=== PATIENT | male | born 1985 | race Caucasian/White ===

== ENCOUNTER 2017-02-04 20:52 | Emergency (ER) | payer OTHER ==
[2017-02-04 21:05] VITALS: BP 141/99; PULSE 69; TEMP 97.6; BMI 40.3
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
[2017-02-04] MEDS ORDERED: KETOROLAC TROMETHAMINE 60 MG/2 ML VIAL IM ONE (22:23)
[2017-02-04] MEDS ORDERED: KETOROLAC TROMETHAMINE 60 MG/2 ML VIAL ONE (22:25)
== END 2017-02-04 22:46 | disposition home or self-care (01) ==
LOC: JERFT 20:52
PROC: 3E0233Z Introduction of Anti-inflammatory into Muscle, Percutaneous Approach (ICD-10-PCS; principal; 2017-02-04)
DX: M54.12 Radiculopathy, cervical region (principal); S16.1XXD Strain of muscle, fascia and tendon at neck level, subsequent encounter; V59.4 Driver of pick-up truck or van injured in collision with other and unspecified motor vehicles in traffic accident; Y92.414 Local residential or business street as the place of occurrence of the external cause; Y93.89 Activity, other specified; Y99.8 Other external cause status
CPT/HCPCS: 99281-25

== ENCOUNTER 2017-05-25 00:48 | Emergency (ER) | payer OTHER | END 2017-05-25 02:19 | disposition left against medical advice (07) | LOC: JER 00:48 | DX: Z53.21 Procedure and treatment not carried out due to patient leaving prior to being seen by health care provider (principal) | CPT/HCPCS: 99281-25 ==

== ENCOUNTER 2018-12-16 17:44 | Emergency (ER) | payer OTHER ==
--- NOTE | 2018-12-16 18:01 | PDOC ---
Rapid Medical Evaluation Time Seen by Provider: 12/16/18 17:58 Medical Evaluation: Allergies Allergy/AdvReac Type Severity Reaction Status Date / Time No Known Allergies Allergy Verified 02/04/17 21:03 12/16/18 17:58 I have performed a brief in-person evaluation of this patient. The patient presents with chief complaint of vomiting x 2 day, with no diarrhea or abdominal pain. States symptoms started after eating ayon egg and cheese sandwich. States feeling dizzy Pertinent physical exam findings NAD even and unlabored breathing, clear lungs + bowel sounds, non tender abdomen I have ordered the following ekg, The patient will proceed to the Ed for further evaluation Discharge Disposition - Diagnosis Vomiting and diarrhea - Referrals - Patient Instructions - Post Discharge Activity
[2018-12-16] MEDS ORDERED: ONDANSETRON *ODT* 4 MG TABLET SL ONE (18:02)
[2018-12-16 18:05] VITALS: TEMP 97.1; BMI 37.9
[2018-12-16] MEDS ORDERED: ONDANSETRON *ODT* 4 MG TABLET ONE (18:40)
--- NOTE | 2018-12-16 19:18 | PDOC ---
History of Present Illness - General Chief Complaint: Vomiting/Diarrhea Stated Complaint: VOMITING Time Seen by Provider: 12/16/18 17:58 History Source: Patient - History of Present Illness Initial Comments: 12/16/18 19:36 33-year-old male complaining of nausea, vomiting, diarrhea 2 hours after eating ayon and cheese sandwich today. Patient denies any abdominal pain. Denies urinary symptoms, chest pain, dizziness. Patient reports feeling weak denies fevers/chills. 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 Loss, Unexplained wgt Loss, Other HEENTM: No: Symptoms Reported, See HPI, Eye Pain, Blurred Vision, Tearing, Recent change in vision, Double Vision, Cataracts, Ear Pain, Ocular Prothesis, Ear Discharge, Nose Pain, Nose Congestion, Tinnitus, Nose Bleeding, Hearing Loss , Throat Pain, Throat Swelling, Mouth Pain, Dental Problems, Difficulty Swallowing, Mouth Swelling, Other ABD/GI: Yes: Diarrhea, Nausea, Vomiting. No: Symptoms Reported, See HPI, Abdominal Distended, Abd. Pain w/ defecation, Blood Streaked Bowels, Constipated , Difficulty Swallowing, Poor Appetite, Poor Fluid Intake, Rectal Bleeding, Indigestion, Abdominal cramping, Tarry Stools, Other : No: Symptoms Reported, See HPI, Burning, Dysuria, Discharge, Frequency, Flank Pain, Hematuria, Incontinence, Pain, Urgency, Testicular Mass, Testicular Swelling, Lesions, Testicular Pain, Other Musculoskeletal: No: Symptoms Reported, See HPI, Back Pain, Gout, Joint Pain, Joint Swelling, Muscle Pain, Muscle Weakness, Neck Pain, Joint Stiffness, Other *Physical Exam - Vital Signs Last Vital Signs Temp Pulse Resp BP Pulse Ox 97.1 F L 62 16 142/102 H 100 12/16/18 17:58 12/16/18 17:58 12/16/18 17:58 12/16/18 17:58 12/16/18 17:58 - Physical Exam General Appearance: Yes: Appropriately Dressed Respiratory/Chest: positive: Lungs Clear, Normal Breath Sounds Cardiovascular: positive: Regular Rhythm, Regular Rate Gastrointestinal/Abdominal: positive: Soft, Increased Bowel Sounds. negative: Tender Musculoskeletal: positive: Normal Inspection Extremity: positive: Normal Capillary Refill, Normal Inspection, Normal Range of Motion Integumentary: positive: Normal Color, Dry, Warm Neurologic: positive: Fully Oriented, Alert, Normal Mood/Affect Moderate Sedation - Procedure Monitoring Vital Signs: Procedure Monitoring Vital Signs Temperature 97.1 F L 12/16/18 17:58 Pulse Rate 62 12/16/18 17:58 Respiratory Rate 16 12/16/18 17:58 Blood Pressure 142/102 H 12/16/18 17:58 O2 Sat by Pulse Oximetry (%) 100 12/16/18 17:58 ED Treatment Course - LABORATORY CBC & Chemistry Diagram: 12/16/18 20:45 12/16/18 20:45 - Medications Given in the ED: ED Medications Discontinued Medications Generic Name Dose Route Start Last Admin Trade Name Freq PRN Reason Stop Dose Admin Ondansetron HCl 4 mg 12/16/18 18:02 12/16/18 18:44 Zofran Odt - SL 12/16/18 18:03 4 mg ONCE ONE Administration Progress Note - Progress Note Progress Note: A: gastroenteritis P: Gi cocktail Po challenge. did not tolerate Po challenge. IVF in zofran labs Medical Decision Making - Medical Decision Making 12/16/18 22:08 tolerated PO water. reports feeling better. will d/ chome. 12/16/18 22:25 b/p 145/97. patient to follow up pcp for b/p management. *DC/Admit/Observation/Transfer Diagnosis at time of Disposition: Vomiting and diarrhea, Gastroenteritis, acute - Discharge Dispostion Disposition: HOME - Referrals - Patient Instructions Printed Discharge Instructions: Viral Gastroenteritis Additional Instructions: drink plenty of fluids start a BRAT ( bananas, rice apples toast) follow up with your doctor return to the ER if symptoms worsen - Post Discharge Activity Forms/Work/School Notes: Back to Work
[2018-12-16] MEDS ORDERED: RANITIDINE HCL 150 MG TABLET (FP) PO ONE (19:36)
[2018-12-16] MEDS ORDERED: MAG HYDROX/AL HYDROX/SIMETH 30 ML UNIT-DOSE CUP PO ONE (19:36)
[2018-12-16] MEDS ORDERED: MAG HYDROX/AL HYDROX/SIMETH 30 ML UNIT-DOSE CUP ONE (19:42)
[2018-12-16] MEDS ORDERED: RANITIDINE HCL 150 MG TABLET (FP) ONE (19:42)
[2018-12-16 19:57] LABS: URINE APPEARANCE CLEAR; URINE BILIRUBIN NEGATIVE (<2.0 mg/dL); URINE COLOR STRAW; URINE GLUCOSE (UA) NEGATIVE (NEGATIVE); URINE KETONE NEGATIVE (NEGATIVE); URINE LEUK ESTERASE NEGATIVE (NEGATIVE); URINE NITRITE NEGATIVE (NEGATIVE); URINE PROTEIN NEGATIVE (NEGATIVE); URINE UROBILINOGEN NEGATIVE mg/dL (0.2-1.0)
[2018-12-16] MEDS ORDERED: SODIUM CHLORIDE 0.9% 500 ML INFUS.BAG IV ONE (20:12)
[2018-12-16] MEDS ORDERED: ONDANSETRON 4 MG/2 ML VIAL IVPB ONE (20:12)
[2018-12-16] MEDS ORDERED: ONDANSETRON 4 MG/2 ML VIAL ONE (20:46)
[2018-12-16 20:53] LABS: BASO % 0.5 % (0-2.0); EOS % 0.2 % (0-4.5); HEMATOCRIT 46.9 % (35.4-49); HEMOGLOBIN 15.8 GM/dL (11.7-16.9); LYMPH % 12.5 % (8-40); MCH 28.7 pg (25.7-33.7); MCHC 33.8 g/dl (32.0-35.9); MONO % 3.9 % (3.8-10.2); NEUT % 82.9 % (42.8-82.8); PLATELET COUNT 275 K/MM3 (134-434); RBC 5.52 M/mm3 (4.00-5.60); RDW 13.3 % (11.9-15.9); WHITE BLOOD COUNT 11.9 K/mm3 (4.0-10.0)
[2018-12-16 21:16] LABS: ALBUMIN 4.6 g/dl (3.4-5.0); ALK PHOS 91 U/L (45-117); ANION GAP 7 MMOL/L (8-16); BILIRUBIN,TOTAL 0.3 mg/dL (0.2-1); BLOOD UREA NITROGEN 8 mg/dL (7-18); CALCIUM 9.7 mg/dL (8.5-10.1); CHLORIDE 104 mmol/L (98-107); CO2 29 mmol/L (21-32); CREATININE 0.9 mg/dL (0.55-1.3); GLUCOSE,RANDOM 97 mg/dL (74-106); LIPASE 157 U/L (73-393); POTASSIUM 4.4 mmol/L (3.5-5.1); SGOT/AST 13 U/L (15-37); SGPT/ALT 18 U/L (13-61); SODIUM 140 mmol/L (136-145); TOT PROT 8.5 g/dl (6.4-8.2)
[2018-12-16 22:21] VITALS: BP 142/97; PULSE 57
--- NOTE | 2018-12-17 10:43 | EKG ---
Test Reason : Blood Pressure : / mmHG Vent. Rate : 052 BPM Atrial Rate : 052 BPM P-R Int : 146 ms QRS Dur : 098 ms QT Int : 416 ms P-R-T Axes : 057 046 044 degrees QTc Int : 386 ms SINUS BRADYCARDIA OTHERWISE NORMAL ECG WHEN COMPARED WITH ECG OF 01-APR-2016 09:34, NO SIGNIFICANT CHANGE WAS FOUND Confirmed by Seven Segura MD ([id number]) on 12/17/2018 10:42:44 AM Referred By: Confirmed By:Seven Segura MD
== END 2018-12-16 22:30 | disposition home or self-care (01) ==
LOC: JER 17:44
PROC: 3E033GC Introduction of Other Therapeutic Substance into Peripheral Vein, Percutaneous Approach (ICD-10-PCS; principal; 2018-12-16)
DX: K52.9 Noninfective gastroenteritis and colitis, unspecified (principal)
CPT/HCPCS: 36415; 80053; 81003; 83690; 85025; 93005; 93010; 96374; 99282-25; Q0162

== ENCOUNTER 2019-01-17 22:25 | Emergency (ER) | payer OTHER ==
[2019-01-17 22:38] VITALS: BP 159/105; PULSE 67; TEMP 97.4; BMI 39.5
--- NOTE | 2019-01-17 23:36 | PDOC ---
History of Present Illness - General Chief Complaint: Nausea/Vomiting Stated Complaint: VOMITING Time Seen by Provider: 01/17/19 23:21 History Source: Patient Exam Limitations: No Limitations - History of Present Illness Initial Comments: 01/17/19 23:46 HISTORY OF PRESENT ILLNESS: 33-year-old male with past medical history of left nephrectomy as a child presents emergency department for evaluation of bitemporal headache, lightheadedness and vomiting today after eating 2 cheeseburgers and fries from [employer]. Patient reported this, it was undigested food was nonbilious nonbloody. Patient denies cough, fevers, sore throats, abdominal pain, diarrhea, hematuria, dysuria. No recent travel or sick contacts. PAST MEDICAL HISTORY: Denies past medical history SURGICAL HISTORY: see HPI ALLERGIES: No known drug allergies REVIEW OF SYSTEMS General/Constitutional: Denies fever or chills. Denies weakness, weight change. HEENT: Denies change in vision. Denies ear pain or discharge. Denies sore throat. Cardiovascular: Denies chest pain or shortness of breath. Respiratory: Denies cough, wheezing, or hemoptysis. Gastrointestinal: see HPI Genitourinary: Denies dysuria, frequency, or change in urination. Musculoskeletal: Denies joint or muscle swelling or pain. Denies neck or back pain. Skin and breasts: Denies rash or easy bruising. Neurologic: Denies headache, vertigo, loss of consciousness, or loss of sensation. Psychiatric: Denies depression or anxiety. Endocrine: Denies increased thirst. Denies abnormal weight change. Hematologic/Lymphatic: Denies anemia, easy bleeding, or history of blood clots. Allergic/Immunologic: Denies hives or skin allergy. Denies latex allergy. PHYSICAL EXAM General Appearance: Well-appearing, appropriately dressed. No apparent distress , no intoxication. HEENT: EOMI, PERRLA, normal ENT inspection, normal voice, TMs normal, pharynx normal. No conjunctival pallor. No photophobia, scleral icterus. Neck: Supple. Trachea midline. No tenderness, rigidity, carotid bruit, stridor , lymphadenopathy, or thyromegaly. Respiratory/Chest: Lungs CTAB. No shortness of breath, chest tenderness, respiratory distress, accessory muscle use. No crackles, rales, rhonchi, stridor , wheezing, dullness Cardiovascular: RRR. S1, S2. No JVD, murmur, bradycardia, tachycardia. Vascular Pulses: Dorsalis-Pedis (R): 2+, Dorsalis-Pedis (L): 2+ Gastrointestinal/Abdominal: Normal bowel sounds. Obese abdomen soft, non- distended. No tenderness or rebound tenderness. No organomegaly, pulsatile mass , guarding, hernia, hepatomegaly, splenomegaly. Lymphatic: No adenopathy, tenderness. Musculoskeletal/Extremities: Normal inspection. FROM of all extremities, normal capillary refill. Pelvis Stable. No CVA tenderness. No tenderness to extremities, pedal edema, swelling, erythema or deformity. Integumentary: Appropriate color, dry, warm. No cyanosis, erythema, jaundice or rash Neurologic: senior research associate II-XII intact. Fully oriented, alert. Appropriate mood/affect. Motor strength 5/5. No appreciable EOM palsy, facial droop or sensory deficit. Negative Romberg. Negative [place]-Hallpike. Gait steady. 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, right side) - Immunization History Immunization Up to Date: Yes - Suicide/Smoking/Psychosocial Hx Smoking History: Never smoked Have you smoked in the past 12 months: No Hx Alcohol Use: No Drug/Substance Use Hx: No Substance Use Type: None *Physical Exam - Vital Signs Last Vital Signs Temp Pulse Resp BP Pulse Ox 97.4 F L 67 20 159/105 H 100 01/17/19 22:33 01/17/19 22:33 01/17/19 22:33 01/17/19 22:33 01/17/19 22:33 ED Treatment Course - LABORATORY CBC & Chemistry Diagram: 01/17/19 23:48 01/17/19 23:48 Medical Decision Making - Medical Decision Making 01/17/19 23:50 A/P: 33-year-old male with headache, lightheadedness and vomiting Differential diagnosis includes but is not limited to vertigo, cluster headache , gastroenteritis, influenza, pancreatitis, cholecystitis, GERD, pneumonia, hypertensive urgency Pneumonia less likely given patient is not coughing has not had any fevers. Labs including lipase Urinalysis, urine culture Normal saline 1 L bolus Toradol 30 mg IV Benadryl 25 mg IV Reglan 10 mg IV I'll defer imaging at this time as her is benign abdominal exam Reassess 01/17/19 23:52 01/18/19 01:22 Laboratory testing shows WBC at 10.8. Chemistry is unremarkable Urinalysis with 1+ leuk esterase 3 wbc's on high-power field Influenza testing is negative Patient is currently free of pain and has a benign abdominal exam. I'll discharge the patient home with referral for primary doctor. *DC/Admit/Observation/Transfer Diagnosis at time of Disposition: Gastroenteritis, acute - Discharge Dispostion Disposition: HOME Condition at time of disposition: Stable Decision to Admit order: No - Prescriptions Prescriptions: Ondansetron [Zofran -] 4 mg PO TID #21 tablet - Referrals Referrals: David Maya MD [Staff Physician] - - Patient Instructions Additional Instructions: Rest, drink lots of fluids: Teas, water, soups Toyin kylee, carbonated beverages for the bubbles May try peppermint teas Avoid heavy , spicy or fatty foods until symptoms have resolved Avoid contact with others until fevers and symptoms resolved Lots of handwashing and good hygiene Continue [id number] medications for symptomatic relief Tylenol or Motrin for fever and pain May use Zofran-one tablet dissolved on tongue as needed for nauseousness. May repeat times one every 8 hours Followup with private physician in one to 2 days as needed Return to emergency department for worsened symptoms, fevers, dehydration - Post Discharge Activity
[2019-01-17] MEDS ORDERED: SODIUM CHLORIDE 1,000 ML IV STA (23:37)
[2019-01-17] MEDS ORDERED: KETOROLAC TROMETHAMINE 30 MG/1 ML VIAL IVPUSH ONE (23:37)
[2019-01-17] MEDS ORDERED: METOCLOPRAMIDE HCL INJECTION 10 MG/2 ML VIAL IVPUSH ONE (23:37)
[2019-01-17] MEDS ORDERED: METOCLOPRAMIDE HCL INJECTION 10 MG/2 ML VIAL ONE (23:56)
[2019-01-17] MEDS ORDERED: KETOROLAC TROMETHAMINE 30 MG/1 ML VIAL ONE (23:56)
[2019-01-18 00:01] LABS: BASO % 0.7 % (0-2.0); EOS % 0.8 % (0-4.5); HEMOGLOBIN 13.8 GM/dL (11.7-16.9); LYMPH % 19.2 % (8-40); MEAN CELL VOLUME 84.9 fl (80-96); MEAN PLT VOLUME 9.7 fl (7.5-11.1); MONO % 8.2 % (3.8-10.2); NEUT % 71.1 % (42.8-82.8); PLATELET COUNT 229 K/MM3 (134-434); RBC 4.94 M/mm3 (4.00-5.60); RDW 13.6 % (11.9-15.9); WHITE BLOOD COUNT 10.8 K/mm3 (4.0-10.0)
[2019-01-18] MEDS ORDERED: METOCLOPRAMIDE HCL INJECTION 10 MG/2 ML VIAL ONE (00:03)
[2019-01-18 00:09] LABS: EPI CELLS 1.2 /HPF (0-5/HPF); URINE APPEARANCE CLEAR; URINE BACTERIA 2.5 /hpf (NEGATIVE); URINE BILIRUBIN NEGATIVE (NEGATIVE); URINE CASTS 1 /lpf (0-8); URINE COLOR YELLOW; URINE GLUCOSE (UA) NEGATIVE (NEGATIVE); URINE KETONE NEGATIVE (NEGATIVE); URINE LEUK ESTERASE 1+ (NEGATIVE); URINE NITRITE NEGATIVE (NEGATIVE); URINE PROTEIN NEGATIVE (NEGATIVE); URINE RBC 0 /hpf (0-4); URINE WBC 3 /hpf (0-5)
[2019-01-18 00:31] LABS: ALBUMIN 3.8 g/dl (3.4-5.0); ALK PHOS 78 U/L (45-117); ANION GAP 4 MMOL/L (8-16); BILIRUBIN,TOTAL 0.3 mg/dL (0.2-1); BLOOD UREA NITROGEN 10 mg/dL (7-18); CALCIUM 9.5 mg/dL (8.5-10.1); CHLORIDE 107 mmol/L (98-107); CO2 30 mmol/L (21-32); CREATININE 0.7 mg/dL (0.55-1.3); GLUCOSE,RANDOM 92 mg/dL (74-106); LIPASE 137 U/L (73-393); POTASSIUM 3.9 mmol/L (3.5-5.1); SGOT/AST 11 U/L (15-37); SGPT/ALT 16 U/L (13-61); SODIUM 141 mmol/L (136-145); TOT PROT 7.4 g/dl (6.4-8.2)
== END 2019-01-18 01:35 | disposition home or self-care (01) ==
LOC: JER 22:25
PROC: 3E033GC Introduction of Other Therapeutic Substance into Peripheral Vein, Percutaneous Approach (ICD-10-PCS; principal; 2019-01-17)
PROC: 3E033GC Introduction of Other Therapeutic Substance into Peripheral Vein, Percutaneous Approach (ICD-10-PCS; 2019-01-17)
PROC: 3E0333Z Introduction of Anti-inflammatory into Peripheral Vein, Percutaneous Approach (ICD-10-PCS; 2019-01-17)
DX: K52.9 Noninfective gastroenteritis and colitis, unspecified (principal); Z90.5 Acquired absence of kidney
CPT/HCPCS: 36415; 80053; 81003; 83690; 85025; 87086; 87804; 96374; 96375; 99282-25; J7030

== ENCOUNTER 2019-01-22 00:40 | Emergency (ER) | payer OTHER ==
[2019-01-22 03:12] VITALS: BP 143/95; PULSE 68; TEMP 98.1; BMI 40.7
[2019-01-22] MEDS ORDERED: ACETAMINOPHEN 325 MG TABLET (FP) PO ONE (03:27)
--- NOTE | 2019-01-22 03:31 | PDOC ---
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, right side) - Immunization History Immunization Up to Date: Yes - Suicide/Smoking/Psychosocial Hx Smoking History: Current some day smoker Have you smoked in the past 12 months: Yes Number of Cigarettes Smoked Daily: 10 Information on smoking cessation initiated: No Hx Alcohol Use: Yes Drug/Substance Use Hx: No Substance Use Type: None Review of Systems - Review of Systems Able to Perform ROS?: No *Physical Exam - Vital Signs Last Vital Signs Temp Pulse Resp BP Pulse Ox 98.1 F 68 19 143/95 99 01/22/19 00:40 01/22/19 00:40 01/22/19 00:40 01/22/19 00:40 01/22/19 00:40 Medical Decision Making - Medical Decision Making Pt eloped before being seen. 01/22/19 03:43 *DC/Admit/Observation/Transfer Diagnosis at time of Disposition: Eloped from emergency department - Discharge Dispostion Disposition: ELOPED - Referrals Referrals: Linda Kim MD [Primary Care Provider] - - Patient Instructions - Post Discharge Activity
== END 2019-01-22 04:09 | disposition left against medical advice (07) ==
LOC: JER 00:40
DX: Z53.21 Procedure and treatment not carried out due to patient leaving prior to being seen by health care provider (principal)
CPT/HCPCS: 99281-25

== ENCOUNTER 2019-07-16 17:58 | Emergency (ER) | payer SELFPAY ==
--- NOTE | 2019-07-16 18:08 | PDOC ---
Rapid Medical Evaluation Time Seen by Provider: 07/16/19 18:06 Medical Evaluation: Allergies Allergy/AdvReac Type Severity Reaction Status Date / Time No Known Allergies Allergy Verified 01/22/19 02:40 07/16/19 18:06 I have performed a brief in-person evaluation of this patient. The patient presents with a chief complaint of: abd pain, vomiting Pertinent physical exam findings:stable and in NAD, non-focal I have ordered the following:labs The patient will proceed to the ED for further evaluation.
[2019-07-16 18:09] VITALS: BP 148/103; PULSE 51; TEMP 97.3; BMI 36.6
[2019-07-16] MEDS ORDERED: ONDANSETRON 4 MG/2 ML VIAL IVPUSH ONE (18:09)
[2019-07-16] MEDS ORDERED: SODIUM CHLORIDE 1,000 ML IV STA (18:09)
[2019-07-16 18:43] LABS: BASO % 0.4 % (0-2.0); EOS % 0.5 % (0-4.5); HEMATOCRIT 43.6 % (35.4-49); HEMOGLOBIN 14.4 GM/dL (11.7-16.9); LYMPH % 17.2 % (8-40); MCH 27.8 pg (25.7-33.7); MEAN CELL VOLUME 84.2 fl (80-96); MEAN PLT VOLUME 9.9 fl (7.5-11.1); MONO % 9.1 % (3.8-10.2); NEUT % 72.8 % (42.8-82.8); PH,URINE 7.5 (5.0-8.0); PLATELET COUNT 246 K/MM3 (134-434); RBC 5.18 M/mm3 (4.00-5.60); RDW 13.5 % (11.9-15.9); URINE APPEARANCE CLOUDY; URINE BILIRUBIN NEGATIVE (NEGATIVE); URINE COLOR YELLOW; URINE GLUCOSE (UA) NEGATIVE (NEGATIVE); URINE KETONE 1+ (NEGATIVE); URINE LEUK ESTERASE NEGATIVE (NEGATIVE); URINE NITRITE NEGATIVE (NEGATIVE); URINE PROTEIN NEGATIVE (NEGATIVE); WHITE BLOOD COUNT 10.4 K/mm3 (4.0-10.0)
[2019-07-16 19:17] LABS: ALBUMIN 4.2 g/dl (3.4-5.0); BILIRUBIN,TOTAL 0.4 mg/dL (0.2-1); BLOOD UREA NITROGEN 9.8 mg/dL (7-18); CREATININE 0.9 mg/dL (0.55-1.3); TOT PROT 7.6 g/dl (6.4-8.2)
[2019-07-16] MEDS ORDERED: ONDANSETRON 4 MG/2 ML VIAL ONE (19:22)
--- NOTE | 2019-07-16 19:23 | PDOC ---
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 negative: Respiratory Distress Cardiovascular: positive: Regular Rhythm, Regular Rate, S1, S2. negative: Murmur Gastrointestinal/Abdominal: positive: Normal Bowel Sounds, Soft. negative: Tender, Distended, Guarding, Rebound Musculoskeletal: negative: CVA Tenderness Neurologic: positive: Alert, Normal Mood/Affect ED Treatment Course - LABORATORY CBC & Chemistry Diagram: 07/16/19 18:19 07/16/19 18:19 - ADDITIONAL ORDERS Additional order review: Laboratory Results 07/16/19 07/16/19 18:19 18:19 Sodium 138 Potassium 4.0 Chloride 102 Carbon Dioxide 29 Anion Gap 8 BUN 9.8 Creatinine 0.9 Est GFR (CKD-EPI)AfAm 127.80 Est GFR (CKD-EPI)NonAf 110.27 Random Glucose 98 Calcium 9.0 Total Bilirubin 0.4 AST 13 L ALT 12 L Alkaline Phosphatase 80 Total Protein 7.6 Albumin 4.2 Lipase 139 Urine Color Yellow Urine Appearance Cloudy Urine pH 7.5 Ur Specific [place] 1.018 Urine Protein Negative Urine Glucose (UA) Negative Urine Ketones 1+ H Urine Blood Negative Urine Nitrite Negative Urine Bilirubin Negative Urine Urobilinogen 1.0 Ur Leukocyte Esterase Negative 07/16/19 18:19 RBC 5.18 MCV 84.2 MCHC 33.0 RDW 13.5 MPV 9.9 Neutrophils % 72.8 Lymphocytes % 17.2 Monocytes % 9.1 Eosinophils % 0.5 Basophils % 0.4 Medical Decision Making - Medical Decision Making 33-year-old male history of right nephrectomy at the age of 3-4 (unknown cause) presents with one episode of NBNB emesis after eating a pancake at [employer] at 4 PM. She believes the pancakes might have been bad. Denies any fever, shortness of breath, chest pain, diarrhea, urinary symptoms. Denies smoking, alcohol use, drug use. Patient appears comfortable Exam unremarkable Could likely be food poisoning Plan: Labs, IV fluids, Zofran, reassess 07/16/19 19:21 Labs reviewed and unremarkable Patient feeling better on reassessment, requesting to go home 07/16/19 20:14 Discharge - Discharge Information Problems reviewed: Yes Clinical Impression/Diagnosis: Food poisoning Condition: Improved Disposition: HOME - Admission No - Additional Discharge Information Prescription Drug Monitoring Program (I-STOP) results: I-STOP not reviewed - Follow up/Referral - Patient Discharge Instructions Patient Printed Discharge Instructions: DI for Food Poisoning Additional Instructions: Thank you for choosing [facility]. It was a pleasure taking care of you. Likely her symptoms are related to the food that you had Recommend eating light food like bananas, rice, applesauce, toast, crackers until feeling better Be sure to drink at least 2 to 3 L of water daily Follow-up with your doctor in 2 days Return to the Emergency Department if your symptoms worsen or persist, you have fever, shortness of breath, chest pain, severe abdominal pain, vomiting or other concerning symptoms. - Post Discharge Activity
== END 2019-07-16 20:25 | disposition home or self-care (01) ==
LOC: JER 17:58
PROC: 3E033GC Introduction of Other Therapeutic Substance into Peripheral Vein, Percutaneous Approach (ICD-10-PCS; principal; 2019-07-16)
PROC: 3E0337Z Introduction of Electrolytic and Water Balance Substance into Peripheral Vein, Percutaneous Approach (ICD-10-PCS; 2019-07-16)
DX: A05.9 Bacterial foodborne intoxication, unspecified (principal); Z90.5 Acquired absence of kidney
CPT/HCPCS: 36415; 80053; 81003; 83690; 85025; 99283-25; J7030

== ENCOUNTER 2020-12-20 19:23 | Emergency (ER) | payer SELFPAY ==
[2020-12-20 19:33] VITALS: TEMP 98; BMI 40.7
[2020-12-20] MEDS ORDERED: MECLIZINE HCL 25 MG TABLET (FP) PO ONE (20:12)
[2020-12-20] MEDS ORDERED: MECLIZINE HCL 25 MG TABLET (FP) ONE (20:19)
[2020-12-20 21:03] LABS: BASO % 0.6 % (0-2.0); EOS % 0.4 % (0-4.5); HEMATOCRIT 45.1 % (35.4-49); LYMPH % 18.2 % (8-40); MCHC 33.2 g/dl (32.0-35.9); MEAN CELL VOLUME 84.3 fl (80-96); MEAN PLT VOLUME 9.6 fl (7.5-11.1); MONO % 8.1 % (3.8-10.2); NEUT % 72.7 % (42.8-82.8); PLATELET COUNT 273 K/MM3 (134-434); RBC 5.34 M/mm3 (4.00-5.60); RDW 13.7 % (11.9-15.9); WHITE BLOOD COUNT 11.1 K/mm3 (4.0-10.0)
[2020-12-20 21:11] LABS: INR 0.97 (0.83-1.09); PROTHROMBIN TIME (PATIENT) 11.7 SEC (9.7-13.0)
[2020-12-20] MEDS ORDERED: SODIUM CHLORIDE 500 ML IV STA (21:19)
[2020-12-20 21:38] LABS: CHLORIDE 106 mmol/L (98-107); POTASSIUM 3.9 mmol/L (3.5-5.1); SODIUM 140 mmol/L (136-145)
[2020-12-20 21:41] LABS: ALBUMIN 4.5 g/dl (3.4-5.0); ANION GAP 7 MMOL/L (8-16); BLOOD UREA NITROGEN 13.3 mg/dL (7-18); CALCIUM 9.8 mg/dL (8.5-10.1); CO2 27 mmol/L (21-32); GLUCOSE,RANDOM 97 mg/dL (74-106)
[2020-12-20 21:45] LABS: BILIRUBIN,TOTAL 0.4 mg/dL (0.2-1); SGOT/AST 10 U/L (15-37); SGPT/ALT 16 U/L (13-61); TOT PROT 8.2 g/dl (6.4-8.2)
[2020-12-20 21:47] LABS: ALK PHOS 80 U/L (45-117)
[2020-12-20] MEDS ORDERED: amLODIPine BESYLATE 10 MG TABLET (FP) PO ONE (22:09)
[2020-12-20] MEDS ORDERED: amLODIPine BESYLATE 5 MG TABLET (FP) ONE (22:15)
[2020-12-20 22:43] VITALS: BP 158/104; PULSE 56
== END 2020-12-21 00:52 | disposition left against medical advice (07) ==
LOC: JER 19:23
PROC: 3E0337Z Introduction of Electrolytic and Water Balance Substance into Peripheral Vein, Percutaneous Approach (ICD-10-PCS; principal; 2020-12-20)
DX: R55 Syncope and collapse (principal); R42 Dizziness and giddiness; I10 Essential (primary) hypertension
CPT/HCPCS: 36415; 70450-TC; 71046-TC-FY; 80053; 82550; 83735; 84484; 85025; 85610; 85730; 93005; 93010; 99285-25

== ENCOUNTER 2021-01-31 01:35 | Emergency (ER) | payer OTHER ==
[2021-01-31] MEDS ORDERED: ACETAMINOPHEN 500 MG TABLET (FP) PO ONE (02:22)
[2021-01-31 02:31] VITALS: BP 137/86; PULSE 87; TEMP 100.2; BMI 36.6
[2021-01-31] MEDS ORDERED: ACETAMINOPHEN 325 MG TABLET (FP) ONE (02:36)
== END 2021-01-31 02:43 | disposition home or self-care (01) ==
LOC: JER 01:35
DX: U07.1 COVID-19 (principal)
CPT/HCPCS: 99283-25

== ENCOUNTER 2021-02-01 06:06 | Emergency (ER) | payer OTHER ==
[2021-02-01 07:00] VITALS: BMI 39.1
[2021-02-01] MEDS ORDERED: SODIUM CHLORIDE 1,000 ML IV STA (07:42)
[2021-02-01] MEDS ORDERED: ONDANSETRON 4 MG/2 ML VIAL IVPUSH ONE (07:42)
[2021-02-01] MEDS ORDERED: ONDANSETRON 4 MG/2 ML VIAL ONE (07:59)
[2021-02-01 08:07] LABS: BASO % 0.4 % (0-2.0); HEMATOCRIT 41.5 % (35.4-49); HEMOGLOBIN 14.3 GM/dL (11.7-16.9); LYMPH % 10.6 % (8-40); MCH 28.2 pg (25.7-33.7); MCHC 34.5 g/dl (32.0-35.9); MEAN CELL VOLUME 81.6 fl (80-96); MONO % 11.4 % (3.8-10.2); NEUT % 77.6 % (42.8-82.8); PLATELET COUNT 172 K/MM3 (134-434); RBC 5.09 M/mm3 (4.00-5.60); RDW 13.2 % (11.9-15.9); WHITE BLOOD COUNT 7.2 K/mm3 (4.0-10.0)
[2021-02-01 08:22] LABS: CALCIUM 8.3 mg/dL (8.5-10.1)
[2021-02-01 08:23] LABS: ALBUMIN 3.3 g/dl (3.4-5.0); BLOOD UREA NITROGEN 13.6 mg/dL (7-18)
[2021-02-01 08:26] LABS: CREATININE 0.8 mg/dL (0.55-1.3)
[2021-02-01 08:27] LABS: BILIRUBIN,TOTAL 0.6 mg/dL (0.2-1)
[2021-02-01 08:28] LABS: TOT PROT 7.2 g/dl (6.4-8.2)
[2021-02-01] MEDS ORDERED: BAMLANIVIMAB 700 MG, ETESEVIMAB 1,400 MG in SODIUM CHLORIDE 250 ML IVPB ONE (09:08)
[2021-02-01 09:18] LABS: EPI CELLS >36 /uL (0-25.1); HYALINE CASTS 4 /uL (0-3.1); URINE APPEARANCE CLEAR; URINE BACTERIA 6 /uL (0-1359); URINE BILIRUBIN NEGATIVE (NEGATIVE); URINE COLOR DK YELLOW; URINE GLUCOSE (UA) NEGATIVE (NEGATIVE); URINE KETONE 3+ (NEGATIVE); URINE LEUK ESTERASE NEGATIVE (NEGATIVE); URINE NITRITE NEGATIVE (NEGATIVE); URINE PROTEIN 2+ (NEGATIVE); URINE RBC 8 /uL (0-23.9); URINE WBC 10 /uL (0-25.8)
[2021-02-01 10:31] VITALS: TEMP 98.9
[2021-02-01 12:40] VITALS: BP 110/68; PULSE 89
== END 2021-02-01 12:40 | disposition home or self-care (01) ==
LOC: JER 06:06
PROC: 3E03329 Introduction of Other Anti-infective into Peripheral Vein, Percutaneous Approach (ICD-10-PCS; principal; 2021-02-01)
PROC: 3E033GC Introduction of Other Therapeutic Substance into Peripheral Vein, Percutaneous Approach (ICD-10-PCS; 2021-02-01)
PROC: 3E0337Z Introduction of Electrolytic and Water Balance Substance into Peripheral Vein, Percutaneous Approach (ICD-10-PCS; 2021-02-01)
DX: U07.1 COVID-19 (principal)
CPT/HCPCS: 36415; 71046-TC-FY; 80053; 81003; 83690; 85025; 87086; 99284-25; M0239; Q0239; Q0245

== ENCOUNTER 2021-02-03 04:55 | Emergency (ER) | payer OTHER ==
[2021-02-03 05:29] VITALS: BP 122/96; PULSE 50; TEMP 98; BMI 38.9
== END 2021-02-03 06:23 | disposition home or self-care (01) ==
LOC: JER 04:55
DX: F41.9 Anxiety disorder, unspecified (principal); R25.1 Tremor, unspecified
CPT/HCPCS: 99283-25

== ENCOUNTER 2021-02-04 01:54 | Emergency (ER) | payer OTHER ==
[2021-02-04 02:43] VITALS: TEMP 97.6; BMI 38.2
[2021-02-04] MEDS ORDERED: SODIUM CHLORIDE 0.9% 500 ML INFUS.BAG IV ONE (03:03)
[2021-02-04] MEDS ORDERED: ACETAMINOPHEN 1000 MG/100 ML VIAL (NON FORMULARY) IVPB ONE (03:03)
[2021-02-04] MEDS ORDERED: FAMOTIDINE 20 MG/50 ML IVPB 20 MG/50 ML MG IVPB ONE ×2 (03:06→03:17)
[2021-02-04] MEDS ORDERED: MAG HYDROX/AL HYDROX/SIMETH 30 ML UNIT-DOSE CUP PO ONE (03:06)
[2021-02-04] MEDS ORDERED: ACETAMINOPHEN INJECTION 100 ML IVPB ONE (03:17)
[2021-02-04] MEDS ORDERED: MAG HYDROX/AL HYDROX/SIMETH 30 ML UNIT-DOSE CUP ONE (03:17)
[2021-02-04 03:45] LABS: EOS % 0.2 % (0-4.5); LYMPH % 19.2 % (8-40); MCH 27.8 pg (25.7-33.7); MCHC 33.3 g/dl (32.0-35.9); MEAN CELL VOLUME 83.4 fl (80-96); MONO % 14.7 % (3.8-10.2); NEUT % 64.9 % (42.8-82.8); PLATELET COUNT 249 K/MM3 (134-434); RBC 5.04 M/mm3 (4.00-5.60); RDW 13.8 % (11.9-15.9); WHITE BLOOD COUNT 6.8 K/mm3 (4.0-10.0)
[2021-02-04 04:09] LABS: CHLORIDE 99 mmol/L (98-107)
[2021-02-04 04:10] LABS: CALCIUM 7.8 mg/dL (8.5-10.1)
[2021-02-04 04:11] LABS: BLOOD UREA NITROGEN 14.4 mg/dL (7-18); CO2 28 mmol/L (21-32); GLUCOSE,RANDOM 75 mg/dL (74-106)
[2021-02-04 04:14] LABS: CREATININE 0.8 mg/dL (0.55-1.3)
[2021-02-04 04:21] LABS: ALBUMIN 2.5 g/dl (3.4-5.0); ANION GAP -13 MMOL/L (8-16); SODIUM 114 mmol/L (136-145); TOT PROT 9.9 g/dl (6.4-8.2)
[2021-02-04 05:07] LABS: BLOOD UREA NITROGEN 14.1 mg/dL (7-18); CALCIUM 7.8 mg/dL (8.5-10.1)
[2021-02-04 05:10] LABS: CREATININE 0.7 mg/dL (0.55-1.3)
[2021-02-04 05:12] LABS: BILIRUBIN,TOTAL 0.6 mg/dL (0.2-1)
[2021-02-04] MEDS ORDERED: POTASSIUM CHLORIDE TABS 20 MEQ TABLET.ER (FP) PO ONE ×2 (05:15→05:21)
[2021-02-04 05:17] LABS: ALBUMIN 3.1 g/dl (3.4-5.0); TOT PROT 6.6 g/dl (6.4-8.2)
[2021-02-04 05:34] VITALS: BP 128/76; PULSE 62
== END 2021-02-04 05:34 | disposition home or self-care (01) ==
LOC: JER 01:54
PROC: 3E0333Z Introduction of Anti-inflammatory into Peripheral Vein, Percutaneous Approach (ICD-10-PCS; principal; 2021-02-04)
PROC: 3E033GC Introduction of Other Therapeutic Substance into Peripheral Vein, Percutaneous Approach (ICD-10-PCS; 2021-02-04)
DX: U07.1 COVID-19 (principal); R10.84 Generalized abdominal pain
CPT/HCPCS: 36415; 80053; 83690; 85025; 99284-25; J0131

== ENCOUNTER 2021-04-26 23:11 | Emergency (ER) | payer OTHER ==
[2021-04-26 23:40] VITALS: BP 164/94; PULSE 64; TEMP 97.9; BMI 42.3
== END 2021-04-27 01:35 | disposition left against medical advice (07) ==
LOC: JER 23:11
DX: R11.2 Nausea with vomiting, unspecified (principal)
CPT/HCPCS: 99281-25

== ENCOUNTER 2021-08-20 20:26 | Emergency (ER) | payer OTHER ==
[2021-08-20 20:30] VITALS: PULSE 85; TEMP 98.3; BMI 42.7
[2021-08-20] MEDS ORDERED: FAMOTIDINE 20 MG/50 ML IVPB 20 MG/50 ML MG IVPB ONE ×2 (21:34→21:49)
[2021-08-20] MEDS ORDERED: SODIUM CHLORIDE 0.9% 500 ML INFUS.BAG IV ONE (21:34)
[2021-08-20] MEDS ORDERED: METOCLOPRAMIDE HCL INJECTION 10 MG/2 ML VIAL IVPUSH ONE ×2 (21:34→22:32)
[2021-08-20] MEDS ORDERED: ACETAMINOPHEN 1000 MG/100 ML VIAL IVPB ONE (21:35)
[2021-08-20] MEDS ORDERED: ACETAMINOPHEN INJECTION 100 ML IVPB ONE (21:48)
[2021-08-20] MEDS ORDERED: METOCLOPRAMIDE HCL INJECTION 10 MG/2 ML VIAL ONE ×2 (21:48→22:33)
[2021-08-20 22:08] LABS: BASO % 0.6 % (0-2.0); EOS % 0.4 % (0-4.5); HEMATOCRIT 41.6 % (35.4-49); HEMOGLOBIN 14.1 GM/dL (11.7-16.9); LYMPH % 5.1 % (8-40); MCH 27.7 pg (25.7-33.7); MEAN CELL VOLUME 81.5 fl (80-96); MEAN PLT VOLUME 9.1 fl (7.5-11.1); MONO % 10.6 % (3.8-10.2); NEUT % 83.3 % (42.8-82.8); PLATELET COUNT 218 10^3/uL (134-434); RDW 13.4 % (11.9-15.9)
[2021-08-20 22:29] LABS: ALBUMIN 4.1 g/dl (3.4-5.0); BLOOD UREA NITROGEN 13.1 mg/dL (7-18); CALCIUM 9.3 mg/dL (8.5-10.1)
[2021-08-20 22:33] LABS: CREATININE 0.9 mg/dL (0.55-1.3)
[2021-08-20 22:34] LABS: BILIRUBIN,TOTAL 0.4 mg/dL (0.2-1); TOT PROT 7.8 g/dl (6.4-8.2)
[2021-08-20] MEDS ORDERED: IBUPROFEN 600 MG TABLET (FP) PO ONE ×2 (23:08→23:09)
[2021-08-20 23:25] VITALS: BP 157/105
== END 2021-08-20 23:47 | disposition home or self-care (01) ==
LOC: JER 20:26
PROC: 3E0333Z Introduction of Anti-inflammatory into Peripheral Vein, Percutaneous Approach (ICD-10-PCS; principal; 2021-08-20)
PROC: 3E033GC Introduction of Other Therapeutic Substance into Peripheral Vein, Percutaneous Approach (ICD-10-PCS; 2021-08-20)
PROC: 3E033GC Introduction of Other Therapeutic Substance into Peripheral Vein, Percutaneous Approach (ICD-10-PCS; 2021-08-20)
PROC: 3E033GC Introduction of Other Therapeutic Substance into Peripheral Vein, Percutaneous Approach (ICD-10-PCS; 2021-08-20)
DX: R51.9 Headache, unspecified (principal); R11.2 Nausea with vomiting, unspecified
CPT/HCPCS: 36415; 80053; 85025; 93005; 93010; 99284-25; J0131

== ENCOUNTER 2021-09-10 15:51 | Emergency (ER) | payer OTHER ==
[2021-09-10 16:35] VITALS: BP 161/102; PULSE 78; TEMP 98; BMI 41.1
[2021-09-10 17:07] LABS: BASO % 0.5 % (0-2.0); EOS % 0.3 % (0-4.5); HEMATOCRIT 45.2 % (35.4-49); HEMOGLOBIN 14.9 GM/dL (11.7-16.9); LYMPH % 13.4 % (8-40); MCHC 32.9 g/dl (32.0-35.9); MEAN CELL VOLUME 82.1 fl (80-96); MEAN PLT VOLUME 9.3 fl (7.5-11.1); MONO % 7.9 % (3.8-10.2); NEUT % 77.9 % (42.8-82.8); PLATELET COUNT 261 10^3/uL (134-434); RBC 5.51 M/mm3 (4.00-5.60); RDW 13.6 % (11.9-15.9); WHITE BLOOD COUNT 8.9 K/mm3 (4.0-10.0)
[2021-09-10 17:14] LABS: INR 1.11 (0.83-1.09); PROTHROMBIN TIME (PATIENT) 12.4 SEC (9.7-13.0)
[2021-09-10 17:17] LABS: ACTIVATED PTT 29.1 SECONDS (25.2-36.5)
[2021-09-10 17:25] LABS: CHLORIDE 107 mmol/L (98-107); SODIUM 142 mmol/L (136-145)
[2021-09-10 17:28] LABS: ALBUMIN 3.9 g/dl (3.4-5.0); ANION GAP 10 MMOL/L (8-16); BLOOD UREA NITROGEN 9.2 mg/dL (7-18); CALCIUM 9.7 mg/dL (8.5-10.1); CO2 24 mmol/L (21-32); GLUCOSE,RANDOM 89 mg/dL (74-106)
[2021-09-10 17:31] LABS: CHOLESTEROL 229 mg/dL (50-200); CREATININE 0.9 mg/dL (0.55-1.3); LDL CHOLESTEROL (ONLY SJRH) 152 mg/dL (5-100); SGOT/AST 19 U/L (15-37); SGPT/ALT 19 U/L (13-61); TRIGLYCERIDES 96 mg/dL (0-150)
[2021-09-10 17:33] LABS: ALK PHOS 105 U/L (45-117); BILIRUBIN,TOTAL 0.6 mg/dL (0.2-1); HDL CHOLESTEROL 45 mg/dL (40-60); TOT PROT 8.1 g/dl (6.4-8.2)
== END 2021-09-10 18:29 | disposition left against medical advice (07) ==
LOC: JER 15:51
DX: R29.810 Facial weakness (principal); I10 Essential (primary) hypertension; R51.9 Headache, unspecified; R07.9 Chest pain, unspecified
CPT/HCPCS: 36415; 70450-TC; 80053; 80061; 82550; 83036; 84484; 85025; 85610; 85730; 86850; 86900; 86901; 93005; 93010; 99285-25; C9803; U0003; U0005

== ENCOUNTER 2022-01-07 17:24 | Emergency (ER) | payer OTHER ==
[2022-01-07 17:35] VITALS: BP 170/105; PULSE 63; TEMP 97.4; BMI 44.1
== END 2022-01-07 19:26 | disposition left against medical advice (07) ==
LOC: JER 17:24
DX: R51.9 Headache, unspecified (principal); R11.10 Vomiting, unspecified
CPT/HCPCS: 99281-25

== ENCOUNTER 2022-04-19 15:12 | Emergency (ER) | payer OTHER ==
[2022-04-19 15:29] VITALS: BP 164/108; PULSE 50; TEMP 97.7; BMI 42.7
[2022-04-19] MEDS ORDERED: ACETAMINOPHEN 500 MG TABLET (FP) PO ONE (18:39)
[2022-04-19] MEDS ORDERED: ONDANSETRON *ODT* 4 MG TABLET SL ONE (18:39)
[2022-04-19] MEDS ORDERED: ARTIFICIAL TEARS (POLYVINYL ALCOHOL) OPTH DROPS OU ONE (18:45)
[2022-04-19] MEDS ORDERED: LORATADINE 10 MG TABLET PO ONE (19:13)
[2022-04-19] MEDS ORDERED: ONDANSETRON *ODT* 4 MG TABLET ONE (19:21)
[2022-04-19] MEDS ORDERED: LORATADINE 10 MG TABLET ONE (19:22)
[2022-04-19] MEDS ORDERED: ACETAMINOPHEN 325 MG TABLET (FP) ONE (19:22)
== END 2022-04-19 21:10 | disposition left against medical advice (07) ==
LOC: JER 15:12
DX: B30.9 Viral conjunctivitis, unspecified (principal); R11.2 Nausea with vomiting, unspecified
CPT/HCPCS: 99283-25; Q0162

== ENCOUNTER 2022-04-29 17:41 | Emergency (ER) | payer OTHER ==
[2022-04-29 17:53] VITALS: BP 168/113; PULSE 70; RESP 18; TEMP 98.1; BMI 39.5
[2022-04-29] MEDS ORDERED: ONDANSETRON 4 MG/2 ML VIAL IVPUSH ONE (19:00)
[2022-04-29] MEDS ORDERED: FAMOTIDINE 20 MG/50 ML IVPB 20 MG/50 ML MG IVPB ONE ×2 (19:00→19:31)
[2022-04-29] MEDS ORDERED: SODIUM CHLORIDE 1,000 ML IV STA (19:00)
[2022-04-29] MEDS ORDERED: PANTOPRAZOLE SODIUM 40 MG VIAL IVPB ONE (19:00)
[2022-04-29] MEDS ORDERED: MAG HYDROX/AL HYDROX/SIMETH 30 ML UNIT-DOSE CUP PO ONE (19:01)
[2022-04-29] MEDS ORDERED: TETRACAINE 0.5% OPHTH SOLN 2 ML BOTTLE OS ONE (19:01)
[2022-04-29] MEDS ORDERED: FLUORESCEIN NA 1 EA STRIP OS ONE (19:01)
[2022-04-29] MEDS ORDERED: MAG HYDROX/AL HYDROX/SIMETH 30 ML UNIT-DOSE CUP ONE (19:30)
[2022-04-29] MEDS ORDERED: ONDANSETRON 4 MG/2 ML VIAL ONE (19:30)
[2022-04-29] MEDS ORDERED: PANTOPRAZOLE SODIUM 40 MG VIAL ONE (19:30)
[2022-04-29] MEDS ORDERED: TETRACAINE 0.5% OPHTH SOLN 2 ML BOTTLE ONE (19:59)
[2022-04-29] MEDS ORDERED: FLUORESCEIN NA 1 EA STRIP ONE (19:59)
[2022-04-29 20:39] LABS: BASO % 0.4 % (0-2.0); HEMATOCRIT 43.2 % (35.4-49); HEMOGLOBIN 14.2 GM/dL (11.7-16.9); LYMPH % 8.9 % (8-40); MCH 27.2 pg (25.7-33.7); MCHC 32.8 g/dl (32.0-35.9); MEAN PLT VOLUME 9.8 fl (7.5-11.1); MONO % 4.2 % (3.8-10.2); NEUT % 86.5 % (42.8-82.8); PLATELET COUNT 229 10^3/uL (134-434); RBC 5.21 M/mm3 (4.00-5.60); RDW 13.7 % (11.9-15.9); WHITE BLOOD COUNT 11.5 K/mm3 (4.0-10.0)
[2022-04-29 20:55] LABS: URINE APPEARANCE CLEAR; URINE BILIRUBIN NEGATIVE (NEGATIVE); URINE COLOR YELLOW; URINE GLUCOSE (UA) NEGATIVE (NEGATIVE); URINE KETONE 1+ (NEGATIVE); URINE LEUK ESTERASE NEGATIVE (NEGATIVE); URINE NITRITE NEGATIVE (NEGATIVE); URINE PROTEIN NEGATIVE (NEGATIVE)
[2022-04-29 20:57] LABS: CALCIUM 9.2 mg/dL (8.5-10.1)
[2022-04-29 20:58] LABS: ALBUMIN 4.1 g/dl (3.4-5.0); BLOOD UREA NITROGEN 9.5 mg/dL (7-18); MAGNESIUM 2.2 mg/dL (1.8-2.4)
[2022-04-29 21:01] LABS: CREATININE 0.8 mg/dL (0.55-1.3); PHOSPHOROUS 3.2 mg/dL (2.5-4.9)
[2022-04-29 21:02] LABS: BILIRUBIN,TOTAL 0.3 mg/dL (0.2-1); TOT PROT 7.9 g/dl (6.4-8.2)
== END 2022-04-29 21:27 | disposition home or self-care (01) ==
LOC: JER 17:41
PROC: 3E033GC Introduction of Other Therapeutic Substance into Peripheral Vein, Percutaneous Approach (ICD-10-PCS; principal; 2022-04-29)
DX: R11.2 Nausea with vomiting, unspecified (principal); S05.02XA Injury of conjunctiva and corneal abrasion without foreign body, left eye, initial encounter; Y99.9 Unspecified external cause status
CPT/HCPCS: 36415; 80053; 81003; 83690; 83735; 84100; 85025; 99284-25

== ENCOUNTER 2022-08-04 20:25 | Emergency (ER) | payer OTHER ==
[2022-08-04 21:12] VITALS: PULSE 65; RESP 20; TEMP 97.9; BMI 39.1
[2022-08-04] MEDS ORDERED: FAMOTIDINE 20 MG/50 ML IVPB 20 MG/50 ML MG IVPB ONE (21:39)
[2022-08-04] MEDS ORDERED: ACETAMINOPHEN 1000 MG/100 ML BAG IVPB ONE (21:39)
[2022-08-04] MEDS ORDERED: ONDANSETRON 4 MG/2 ML VIAL IVPUSH ONE (21:39)
[2022-08-04] MEDS ORDERED: SODIUM CHLORIDE 0.9% 500 ML INFUS.BAG IV ONE (21:39)
[2022-08-04 21:56] LABS: BASO % 0.8 % (0-2.0); EOS % 0.4 % (0-4.5); HEMATOCRIT 42.2 % (35.4-49); HEMOGLOBIN 14.2 GM/dL (11.7-16.9); LYMPH % 16.5 % (8-40); MCH 27.5 pg (25.7-33.7); MCHC 33.7 g/dl (32.0-35.9); MEAN CELL VOLUME 81.6 fl (80-96); MEAN PLT VOLUME 9.2 fl (7.5-11.1); MONO % 7.6 % (3.8-10.2); NEUT % 74.7 % (42.8-82.8); PLATELET COUNT 259 10^3/uL (134-434); RBC 5.17 M/mm3 (4.00-5.60); RDW 13.4 % (11.9-15.9); WHITE BLOOD COUNT 10.1 K/mm3 (4.0-10.0)
[2022-08-04 22:20] LABS: ALBUMIN 4.1 g/dl (3.4-5.0); BLOOD UREA NITROGEN 8.8 mg/dL (7-18); CALCIUM 9.8 mg/dL (8.5-10.1)
[2022-08-04 22:24] LABS: BILIRUBIN,TOTAL 0.2 mg/dL (0.2-1); TOT PROT 7.8 g/dl (6.4-8.2)
[2022-08-04] MEDS ORDERED: ACETAMINOPHEN INJECTION 100 ML IVPB ONE (22:30)
[2022-08-04] MEDS ORDERED: FAMOTIDINE 10 MG/ML VIAL IVPB ONE (22:31)
[2022-08-04] MEDS ORDERED: ONDANSETRON 4 MG/2 ML VIAL ONE (22:31)
[2022-08-04 23:50] VITALS: BP 160/102
== END 2022-08-05 00:26 | disposition home or self-care (01) ==
LOC: JER 20:25
PROC: 3E0333Z Introduction of Anti-inflammatory into Peripheral Vein, Percutaneous Approach (ICD-10-PCS; principal; 2022-08-04)
PROC: 3E033GC Introduction of Other Therapeutic Substance into Peripheral Vein, Percutaneous Approach (ICD-10-PCS; 2022-08-04)
PROC: 3E033GC Introduction of Other Therapeutic Substance into Peripheral Vein, Percutaneous Approach (ICD-10-PCS; 2022-08-04)
DX: R11.2 Nausea with vomiting, unspecified (principal); I10 Essential (primary) hypertension
CPT/HCPCS: 36415; 80053; 83690; 85025; 99284-25

== ENCOUNTER 2022-10-16 20:17 | Emergency (ER) | payer OTHER ==
[2022-10-16 20:22] VITALS: PULSE 68; RESP 18; TEMP 97.9; BMI 38.7
[2022-10-16] MEDS ORDERED: ACETAMINOPHEN INJECTION 100 ML IVPB ONE (21:08)
[2022-10-16] MEDS ORDERED: ONDANSETRON *ODT* 4 MG TABLET SL ONE (21:08)
[2022-10-16] MEDS ORDERED: ACETAMINOPHEN 1000 MG/100 ML BAG IVPB ONE (21:08)
[2022-10-16] MEDS ORDERED: FAMOTIDINE 20 MG/50 ML IVPB 20 MG/50 ML MG IVPB ONE ×2 (21:08)
[2022-10-16] MEDS ORDERED: MAG HYDROX/AL HYDROX/SIMETH 30 ML UNIT-DOSE CUP PO ONE (21:08)
[2022-10-16] MEDS ORDERED: SODIUM CHLORIDE 0.9% 500 ML INFUS.BAG IV ONE (21:20)
[2022-10-16] MEDS ORDERED: ONDANSETRON *ODT* 4 MG TABLET ONE (21:20)
[2022-10-16 21:42] LABS: BASO % 0.6 % (0-2.0); EOS % 0.6 % (0-4.5); HEMATOCRIT 43.6 % (35.4-49); HEMOGLOBIN 14.3 GM/dL (11.7-16.9); LYMPH % 15.4 % (8-40); MCH 26.9 pg (25.7-33.7); MCHC 32.8 g/dl (32.0-35.9); MEAN PLT VOLUME 8.9 fl (7.5-11.1); MONO % 7.3 % (3.8-10.2); NEUT % 76.1 % (42.8-82.8); PLATELET COUNT 262 10^3/uL (134-434); RBC 5.32 M/mm3 (4.00-5.60); RDW 13.7 % (11.9-15.9); WHITE BLOOD COUNT 11.7 K/mm3 (4.0-10.0)
[2022-10-16 21:52] LABS: INR 1.08 (0.83-1.09); PROTHROMBIN TIME (PATIENT) 12.4 SEC (9.7-13.0)
[2022-10-16 22:02] LABS: CALCIUM 9.3 mg/dL (8.5-10.1)
[2022-10-16 22:03] LABS: ALBUMIN 3.9 g/dl (3.4-5.0); BLOOD UREA NITROGEN 9.8 mg/dL (7-18)
[2022-10-16 22:06] LABS: CREATININE 0.9 mg/dL (0.55-1.3)
[2022-10-16 22:07] LABS: BILIRUBIN,TOTAL 0.3 mg/dL (0.2-1); TOT PROT 7.6 g/dl (6.4-8.2)
[2022-10-16] MEDS ORDERED: KETOROLAC TROMETHAMINE 15 MG/ML VIAL IVPUSH ONE (22:53)
[2022-10-16 22:56] VITALS: BP 152/100
[2022-10-16] MEDS ORDERED: KETOROLAC TROMETHAMINE 15 MG/ML VIAL ONE (22:57)
== END 2022-10-16 23:26 | disposition home or self-care (01) ==
LOC: JER 20:17
PROC: 3E033GC Introduction of Other Therapeutic Substance into Peripheral Vein, Percutaneous Approach (ICD-10-PCS; principal; 2022-10-16)
DX: R11.2 Nausea with vomiting, unspecified (principal)
CPT/HCPCS: 36415; 76705-TC; 80053; 85025; 85610; 99284-25; Q0162

== ENCOUNTER 2022-12-27 21:32 | Emergency (ER) | payer OTHER ==
[2022-12-27 21:42] VITALS: RESP 18; TEMP 97.9; BMI 36.3
[2022-12-27] MEDS ORDERED: ACETAMINOPHEN 1000 MG/100 ML BAG IVPB ONE (22:34)
[2022-12-27] MEDS ORDERED: SODIUM CHLORIDE 0.9% 500 ML INFUS.BAG IV ONE (22:34)
[2022-12-27] MEDS ORDERED: ONDANSETRON 4 MG/2 ML VIAL IVPUSH ONE (22:35)
[2022-12-27] MEDS ORDERED: ACETAMINOPHEN INJECTION 100 ML IVPB ONE (22:47)
[2022-12-27] MEDS ORDERED: ONDANSETRON 4 MG/2 ML VIAL ONE (22:48)
[2022-12-27 23:19] LABS: BASO % 0.4 % (0-2.0); EOS % 0.1 % (0-4.5); HEMATOCRIT 41.8 % (35.4-49); HEMOGLOBIN 13.6 GM/dL (11.7-16.9); LYMPH % 12.6 % (8-40); MCH 26.6 pg (25.7-33.7); MCHC 32.5 g/dl (32.0-35.9); MEAN CELL VOLUME 81.9 fl (80-96); MEAN PLT VOLUME 9.6 fl (7.5-11.1); MONO % 6.3 % (3.8-10.2); NEUT % 80.6 % (42.8-82.8); PLATELET COUNT 228 10^3/uL (134-434); RDW 14.1 % (11.9-15.9); WHITE BLOOD COUNT 11.1 K/mm3 (4.0-10.0)
[2022-12-27 23:40] LABS: CALCIUM 9.5 mg/dL (8.5-10.1)
[2022-12-27 23:41] LABS: ALBUMIN 3.8 g/dl (3.4-5.0); MAGNESIUM 1.9 mg/dL (1.8-2.4)
[2022-12-27 23:44] LABS: CREATININE 0.9 mg/dL (0.55-1.3)
[2022-12-27 23:45] LABS: BILIRUBIN,TOTAL 0.3 mg/dL (0.2-1)
[2022-12-27 23:46] LABS: TOT PROT 7.3 g/dl (6.4-8.2)
[2022-12-27 23:58] VITALS: BP 136/98; PULSE 56
== END 2022-12-28 00:36 | disposition home or self-care (01) ==
LOC: JER 21:32
PROC: 3E033NZ Introduction of Analgesics, Hypnotics, Sedatives into Peripheral Vein, Percutaneous Approach (ICD-10-PCS; principal; 2022-12-27)
PROC: 3E033GC Introduction of Other Therapeutic Substance into Peripheral Vein, Percutaneous Approach (ICD-10-PCS; 2022-12-27)
DX: R51.9 Headache, unspecified (principal); R11.2 Nausea with vomiting, unspecified; R19.7 Diarrhea, unspecified
CPT/HCPCS: 36415; 70450-TC; 80053; 83690; 83735; 85025; 93005; 93010; 99285-25

== ENCOUNTER 2023-06-01 20:53 | Emergency (ER) | payer OTHER ==
[2023-06-01 21:03] VITALS: TEMP 98.2; BMI 39.0
[2023-06-01] MEDS ORDERED: MAG HYDROX/AL HYDROX/SIMETH 30 ML UNIT-DOSE CUP PO ONE (21:37)
[2023-06-01] MEDS ORDERED: ONDANSETRON *ODT* 4 MG TABLET SL ONE (21:37)
[2023-06-01] MEDS ORDERED: MAG HYDROX/AL HYDROX/SIMETH 30 ML UNIT-DOSE CUP ONE (21:41)
[2023-06-01] MEDS ORDERED: ONDANSETRON *ODT* 4 MG TABLET ONE (21:41)
[2023-06-01 22:16] VITALS: BP 140/90; PULSE 75; RESP 19
== END 2023-06-01 22:15 | disposition home or self-care (01) ==
LOC: JER 20:53
DX: R11.10 Vomiting, unspecified (principal); R19.7 Diarrhea, unspecified; R51.9 Headache, unspecified
CPT/HCPCS: 99283-25; Q0162

== ENCOUNTER 2024-02-11 21:28 | Emergency (ER) | payer OTHER ==
[2024-02-11 21:34] VITALS: BP 161/108; PULSE 70; RESP 20; TEMP 97.5; BMI 54.8
[2024-02-11] MEDS ORDERED: METOCLOPRAMIDE HCL INJECTION 10 MG/2 ML VIAL ONE (22:21)
[2024-02-11] MEDS ORDERED: ACETAMINOPHEN INJECTION 100 ML IVPB ONE (22:21)
[2024-02-11] MEDS ORDERED: MAG HYDROX/AL HYDROX/SIMETH 30 ML UNIT-DOSE CUP ONE (22:21)
[2024-02-11] MEDS: METOCLOPRAMIDE HCL INJECTION 10 MG/2 ML VIAL IVPUSH ONE (22:32)
[2024-02-11] MEDS: LACTATED RINGERS SOLUTION 1000 ML INFUS.BAG IV ONE (22:32)
[2024-02-11] MEDS: MAG HYDROX/AL HYDROX/SIMETH 30 ML UNIT-DOSE CUP PO ONE (22:32)
[2024-02-11] MEDS: ACETAMINOPHEN 1000 MG/100 ML BAG IVPB ONE (22:32)
[2024-02-11 22:36] LABS: BASO % 0.5 % (0-2.0); EOS % 0.1 % (0-4.5); HEMATOCRIT 42.8 % (35.4-49); HEMOGLOBIN 14.3 GM/dL (11.7-16.9); LYMPH % 12.7 % (8-40); MCH 27.5 pg (25.7-33.7); MCHC 33.5 g/dl (32.0-35.9); MEAN CELL VOLUME 82.3 fl (80-96); MONO % 6.9 % (3.8-10.2); NEUT % 79.8 % (42.8-82.8); PLATELET COUNT 262 10^3/uL (134-434); RDW 13.3 % (11.9-15.9); WHITE BLOOD COUNT 13.2 K/mm3 (4.0-10.0)
[2024-02-11 23:16] LABS: CALCIUM 9.1 mg/dL (8.5-10.1)
[2024-02-11 23:17] LABS: ALBUMIN 3.8 g/dl (3.4-5.0); BLOOD UREA NITROGEN 8.4 mg/dL (7-18)
[2024-02-11 23:20] LABS: CREATININE 0.9 mg/dL (0.55-1.3)
[2024-02-11 23:22] LABS: BILIRUBIN,TOTAL 0.5 mg/dL (0.2-1); TOT PROT 7.7 g/dl (6.4-8.2)
[2024-02-11] MEDS ORDERED: ONDANSETRON 4 MG/2 ML VIAL ONE (23:43)
[2024-02-11] MEDS ORDERED: FAMOTIDINE 20 MG/50 ML IVPB 20 MG/50 ML MG IVPB ONE (23:44)
[2024-02-11] MEDS: LACTATED RINGERS SOLUTION 1,000 ML/1,000 ML INFUS.BAG IV STA (23:52)
[2024-02-11] MEDS: FAMOTIDINE 20 MG/50 ML IVPB 20 MG/50 ML MG IVPB ONE (23:53)
[2024-02-11] MEDS: ONDANSETRON 4 MG/2 ML VIAL IVPUSH ONE (23:53)
== END 2024-02-12 02:11 | disposition left against medical advice (07) ==
LOC: JER 21:28
PROC: 3E033GC Introduction of Other Therapeutic Substance into Peripheral Vein, Percutaneous Approach (ICD-10-PCS; principal; 2024-02-11)
PROC: 3E033GC Introduction of Other Therapeutic Substance into Peripheral Vein, Percutaneous Approach (ICD-10-PCS; 2024-02-11)
PROC: 3E033GC Introduction of Other Therapeutic Substance into Peripheral Vein, Percutaneous Approach (ICD-10-PCS; 2024-02-11)
PROC: 3E033NZ Introduction of Analgesics, Hypnotics, Sedatives into Peripheral Vein, Percutaneous Approach (ICD-10-PCS; 2024-02-11)
DX: R10.13 Epigastric pain (principal); R11.2 Nausea with vomiting, unspecified; R51.9 Headache, unspecified; Z20.822 Contact with and (suspected) exposure to COVID-19
CPT/HCPCS: 0241U-QW; 36415; 80053; 84484; 85025; 93005; 93010; 96374; 96375; 99284-25; J0131

== ENCOUNTER 2025-01-22 21:54 | Emergency (ER) | payer OTHER ==
[2025-01-22 22:19] VITALS: BP 128/100; PULSE 65; RESP 18; TEMP 97.7; BMI 37.9
[2025-01-22] MEDS ORDERED: FAMOTIDINE 20 MG TABLET ONE (23:17)
[2025-01-22] MEDS ORDERED: ONDANSETRON *ODT* 4 MG TABLET ONE (23:18)
[2025-01-22] MEDS ORDERED: ACETAMINOPHEN 325 MG TABLET (FP) ONE (23:18)
[2025-01-22] MEDS ORDERED: MAG HYDROX/AL HYDROX/SIMETH 30 ML UNIT-DOSE CUP ONE (23:18)
[2025-01-22] MEDS: MAG HYDROX/AL HYDROX/SIMETH -MYLANTA- ORAL SUSPENSION PO ONE (23:35)
[2025-01-22] MEDS: ACETAMINOPHEN 500 MG TABLET (FP) PO ONE (23:45)
[2025-01-22] MEDS: FAMOTIDINE 20 MG TABLET PO ONE (23:45)
[2025-01-22] MEDS: ONDANSETRON *ODT* 4 MG TABLET SL ONE (23:45)
== END 2025-01-23 00:33 | disposition home or self-care (01) ==
LOC: JER 21:54
DX: R11.2 Nausea with vomiting, unspecified (principal); R19.7 Diarrhea, unspecified
CPT/HCPCS: 0241U-QW; 99283-25; Q0162